=== PATIENT | male | born 1985 | race Caucasian/White ===

== ENCOUNTER 2020-08-01 22:48 | Emergency (ER) | payer BC ==
[~2020-08-01] VITALS: Ht 175.3 cm; Wt 95.3 kg
[2020-08-01 23:35] LABS: HEMATOCRIT 43.6 % (42.0-52.0); MCH 30.4 pg (26.0-34.0); MCHC 34.5 g/dL (28.0-37.0); MCV 88.2 fL (80.0-100.0); MPV 8.5 fl. (7.2-11.1); RBC 4.94 mil/uL (4.50-6.00); RDW-CV 12.9 % (10.5-14.5); WBC 10.3 thou/uL (4.0-11.0)
[2020-08-01 23:41] LABS: CALCIUM 9.8 mg/dL (8.5-10.1); CREATININE 1.5 mg/dL (0.6-1.3); POTASSIUM 3.8 mmol/L (3.5-5.1)
[2020-08-01 23:45] LABS: ALBUMIN 4.3 g/dL (3.4-5.0); TOTAL BILIRUBIN 0.3 mg/dL (<0.1-1.0); TOTAL PROTEIN 8.1 g/dL (6.4-8.2)
[2020-08-02 01:17] VITALS: BP 123/73
[2020-08-03] MEDS ORDERED: PERCOCET PO (15:41)
[2020-08-03] MEDS ORDERED: CIPROFLOXACIN500 M1 PO (15:41)
[2020-08-03] MEDS ORDERED: ZOFRAN ODT4 MG DISSOLVE (15:41)
== END 2020-08-02 01:17 | disposition home or self-care (01) ==
LOC: M.ERS 22:48
PROVIDERS: Personal Emergency Response Attendant
DX: N20.1 Calculus of ureter (principal); N23 Unspecified renal colic; F17.210 Nicotine dependence, cigarettes, uncomplicated; Z87.442 Personal history of urinary calculi

== ENCOUNTER 2020-08-03 15:17 | Emergency (ER) | payer BC ==
[~2020-08-03] VITALS: Ht 175.3 cm; Wt 95.3 kg
[2020-08-03] MEDS ORDERED: CIPROFLOXACIN500 M1 PO (15:41)
[2020-08-03] MEDS ORDERED: PERCOCET PO (15:41)
[2020-08-03] MEDS ORDERED: ZOFRAN ODT4 MG DISSOLVE (15:41)
[2020-08-03 16:05] VITALS: BP 153/104
== END 2020-08-03 16:06 | disposition home or self-care (01) ==
LOC: M.ERS 15:17
DX: N20.0 Calculus of kidney (principal)